=== PATIENT | male | born 1940 | race Caucasian/White ===

== ENCOUNTER 2021-01-31 22:26 | Inpatient (IN) ==
[~2021-01-31 22:26] MED LIST: Calcium CHLORIDE 10% SYRINGE 1 GM/10 ML ONE; EPINEPHrine SYR 0.1MG/ML 10 ml SYRINGE ONE; Sodium Bicarbonate 8.4% SYR 50 ml SYRINGE ONE
[2021-01-31 23:08] LABS: Hematocrit 29 % (42-52); Hemoglobin 9.3 g/dL (14.0-18.0); Mean Corpuscular HGB Conc 32 g/dL (31-36); Mean Corpuscular Hemoglobin 30 pg (27-31); Mean Corpuscular Volume 92 fL (80-94); Platelet Count 170 10^3/uL (150-450); Red Blood Count 3.12 10^6 /uL (4.18-5.48); Red Cell Distribution Width 16 % (10-15); White Blood Count 26.8 10^3/uL (3.5-10.8)
[2021-01-31 23:24] LABS: ALT 402 U/L (7-52); AST 657 U/L (13-39); Albumin 2.3 g/dL (3.2-5.2); Albumin/Globulin Ratio 0.7 (1-3); Alkaline Phosphatase 172 U/L (35-149); Blood Urea Nitrogen 55 mg/dL (6-24); CO2 Carbon Dioxide 18 mmol/L (22-32); Calcium 7.5 mg/dL (8.6-10.3); Chloride 98 mmol/L (101-111); Globulin 3.2 g/dL (2-4); Glucose 118 mg/dL (70-100); Magnesium 1.9 mg/dL (1.9-2.7); Sodium 134 mmol/L (135-145); Total Protein 5.5 g/dL (6.4-8.9)
[2021-01-31 23:29] LABS: Anisocytosis 1+
[2021-01-31 23:30] LABS: ABS Lymphocytes 0.5 10^3/ul (1.0-4.8); ABS Monocytes 1.7 10^3/ul (0-0.8); ABS Neutrophils 24.5 10^3/ul (1.5-7.7)
[2021-01-31 23:47] LABS: Anion Gap 18 mmol/L (2-11); Potassium 5.2 mmol/L (3.5-5.0)
[2021-01-31 23:50] LABS: Troponin I 0.17 ng/mL (<0.03)
[2021-02-01 00:24] LABS: Lipase 25 U/L (11.0-82.0)
[2021-02-01 00:27] LABS: Activated Partial Thrombo Time 34.5 seconds (26.0-38.0); INR 2.58 (0.86-1.15)
[2021-02-01] MEDS ORDERED: Norepinephrine IV 4 MG in NS 0.9% 250 ml 246 ML IV SCH (01:00)
[2021-02-01] MEDS ORDERED: Norepinephrine 16MCG/ML IVPRE 4,000 MCG/250 ML BAG IV SCH (01:00)
[2021-02-01] MEDS: Lactated Ringers 1000 ml BAG 1,000 ML IV ONE ×2 (01:02→01:22)
[2021-02-01] MEDS ORDERED: Rocuronium 50 mg VIAL 10 mg/ml 5 ml VIAL (50 mg) ONE (01:16)
[2021-02-01] MEDS ORDERED: Succinylcholine 200 mg VIAL 20 mg/ml 10 ml VIAL (200 mg) ONE (01:18)
[2021-02-01 01:22] LABS: Venous Bicarbonate HCO3 13.6 mmol/L (24-28)
[2021-02-01 01:36] LABS: Rapid COVID-19 Molecular Undetected (Undetected)
[2021-02-01] MEDS ORDERED: Vancomycin 1,000 MG in NS 0.9% 250 ml 250 ML IVPB ONE (02:26)
[2021-02-01] MEDS ORDERED: Hydrocortisone INJ 100 MG/2ML 2 ML VIAL IV ONE (02:28)
[2021-02-01] MEDS ORDERED: Zosyn per Pharmacy NOTE FOLLOW UP SCH (03:00)
[2021-02-01] MEDS ORDERED: Vancomycin per Pharmacy 1 EA NOTE FOLLOW UP SCH (03:00)
[2021-02-01] MEDS ORDERED: ZOSYN 3.375 GM x ONE DOSE over 30 miuntes IV (03:00)
[2021-02-01] MEDS ORDERED: Pantoprazole VIAL 40 MG VIAL IV SCH (03:00)
[2021-02-01 03:51] VITALS: BP 180/35
[2021-02-01 04:06] LABS: C Reactive Protein 112.21 mg/L (<8.01)
[2021-02-01] MEDS ORDERED: Heparin 5000 UNITS/ML 1 mL VIAL SUBCUT SCH (06:00)
[2021-02-01 09:40] LABS: Hepatitis B Surface Antigen Nonreactive (Nonreactive)
[2021-02-01 09:45] LABS: Hepatitis A Ab IgM Negative (Negative)
[2021-02-01 09:46] LABS: Hepatitis B Core IgM Nonreactive (Nonreactive)
[2021-02-01 09:57] LABS: Hepatitis C Antibody Negative (Negative)
[2021-02-01] MEDS ORDERED: Hydrocortisone INJ 100 MG/2ML 2 ML VIAL IV SCH (10:00)
== END 2021-02-01 12:39 | disposition expired | DRG 871 ==
LOC: ED 22:26 → ICU 02-01 01:14 → SUATTDRO 02-01 01:14 → ICU 02-01 02:36
PROVIDERS: ADMIT Internal Medicine; ATTEND Internal Medicine